=== PATIENT | female | born 2000 | race Caucasian/White ===

== ENCOUNTER 2024-09-25 20:01 | Emergency (ER) | payer BC, SELFPAY ==
[2024-09-25 20:09] VITALS: BP 143/96
[2024-09-25 20:28] LABS: % Basophils 0.8 % (0-2); % Eosinophils 1.4 % (0-6); % Immature Granulocytes 0.3 % (0-0.5); % Lymphocytes 37.4 % (20.5-51.1); % Monocytes 8.7 % (1.7-9.3); % Neutrophils 51.4 % (42.2-75.2); Absolute Basophils 0.1 10^3/uL (0-0.2); Absolute Eosinophils 0.1 10^3/uL (0-0.7); Absolute Monocytes 0.7 10^3/uL (0.1-0.6); Absolute Neutrophils 4.1 10^3/uL (1.4-6.5); Hematocrit 42.5 % (37.0-47.0); Hemoglobin 14.6 g/dL (12.0-16.0); Mean Corp Hgb Conc. 34.4 g/dL (33.0-37.0); Mean Corpuscular Hgb 31.3 pg (27.0-31.0); Nucleated Red Blood Cells % 0 %; Platelet Count 292 10^3/uL (130-400); Red Blood Cell Count 4.67 10^6/uL (4.20-5.40); Red Cell Dist. Width 11.2 % (11.5-14.5); White Blood Cell Count 7.9 10^3/uL (4.8-10.8)
[2024-09-25 20:29] LABS: Urine Albumin Negative (Neg - Trace); Urine Bilirubin Negative (Negative); Urine Character Clear (Clear); Urine Color Yellow; Urine Glucose Negative (Negative); Urine Ketone Negative (Negative); Urine Leukocyte 1+ (Negative); Urine Nitrite Negative (Negative); Urine Occult Blood 4+ (Negative); Urine Urobilinogen Negative (Neg - 1+); Urine pH 6.5 (5.0-9.0)
[2024-09-25 20:39] LABS: Urine Bacteria Few (Negative); Urine Red Blood Cell 0-2 /HPF (0-2); Urine Squamous Cell >30 /LPF (Few)
[2024-09-25 20:43] LABS: HCG, Serum Qualitative Screen Negative
[2024-09-25 20:48] LABS: ALT (SGPT) 19 U/L (0-35); AST (SGOT) 23 U/L (14-36); Albumin 5.2 g/dl (3.5-5.0); Alkaline Phosphatase 67 U/L (38-126); Blood Urea Nitrogen 18 mg/dl (7-17); Calcium 9.1 mg/dl (8.4-10.2); Carbon Dioxide 25 mmol/L (22-30); Chloride 103 mmol/L (98-107); Glucose 90 mg/dl (70-99); Lipase 87 U/L (23-300); Potassium 4.1 mmol/L (3.5-5.1); Sodium 141 mmol/L (135-145); Total Bilirubin 0.5 mg/dl (0.2-1.3); Total Protein 7.7 g/dl (6.3-8.2); eGFR > 60.00
[2024-09-25 20:51] VITALS: BP 150/98
[2024-09-25 20:53] VITALS: BMI 23.0
[2024-09-25 22:00] VITALS: BP 119/86
--- NOTE | 2024-09-25 22:10 | ED.GENMED ---
History of Present Illness
<Melvina Soto NP - Last Filed: 09/25/24 22:48>
General
Chief Complaint: Abdominal Pain
Source: patient
Exam Limitations: none
Time Seen by Provider: 09/25/24 21:03
Nursing documentation reviewed up to this point in time: agreed with
History of Present Illness
History of Present Illness:
Patient to ED wt complaint of left flank pain. Symptoms started 3 days ago. Denies fever/chills, n/v/d. No prior history of same. No aggravating or alleviating factors. States pain is constant.
Past History
<Melvina Soto NP - Last Filed: 09/25/24 22:48>
Past History
ED Past Medical History: None
ED Past Surgical History: None
Review of Systems
<Melvina Soto NP - Last Filed: 09/25/24 22:48>
Review of Systems
Allergies reviewed?: Yes
All Other Systems: ROS reviewed and negative except as documented in HPI and ROS
Constitutional: Reports no symptoms
EENT: Reports no symptoms
Respiratory: Reports no symptoms
Cardiac: Reports no symptoms
ABD/GI: Reports no symptoms
: Reports flank pain
Musculoskeletal: Reports no symptoms
Skin: Reports no symptoms
Neurological: Reports no symptoms
Psychiatric: Reports no symptoms
Phy Exam
<Melvina Soto NP - Last Filed: 09/25/24 22:48>
General Physical Exam
General Presentation: mild distress
General age: appears stated age
General Skin: warm and dry
General Habitus: normal
General Mental: alert
Gastrointestinal Exam
Gastrointestinal Exam: normal bowel sounds, non tender, soft, no organomegaly and non distended
Musculoskeletal Exam
Musculoskeletal Exam: full ROM and neuro vasc intact
Skin Exam
Skin Exam: normal color, warm/dry and no rash
Psychiatric Exam
Psychiatric Exam: normal mood/affect
Course
<Melvina Soto NP - Last Filed: 09/25/24 22:48>
Orders/Labs/Results
Orders:
Orders
09/25/24 20:14
Test Result ONCE
09/25/24 20:21
Complete Blood Count/With Diff Urgent
Comprehensive Metabolic Panel Urgent
HCG, Serum Qualitative Screen Urgent
Comment: Notify provider if positive test present
Lipase Urgent
Urinalysis Reflex To Culture Urgent
Date Specimen was Collected: 09/25/24
Time Specimen was Collected: 20:14
Urine Microscopic Reflex Cult Urgent
Urine Culture Urgent
JEREL Source: U
Specimen Description:
Date Specimen was Collected: 09/25/24
Time Specimen was Collected: 20:14
09/25/24 21:45
CT Abd/pel Without Iv Or Oral Urgent
Comment:
Reason For Exam: left flank pain
Abnormal Lab Results
09/25/24
20:21
MCH 31.3 H pg
(27.0-31.0)
RDW 11.2 L %
(11.5-14.5)
Absolute Monos (auto) 0.7 H 10^3/uL
(0.1-0.6)
BUN 18 H mg/dl
(7-17)
Creatinine 1.2 H mg/dL
(0.6-1.0)
Albumin 5.2 H g/dl
(3.5-5.0)
Ur Occult Blood Reflex 4+ A
(Negative)
Leukocyte Esterase Rfl 1+ A
(Negative)
Urine Bacteria (Reflex) Few A
(Negative)
09/25/24 20:21
09/25/24 20:21
Vital Signs
Initial and Last Documented VS:
Initial Vital Signs
Temp Pulse Resp BP Pulse Ox
97.7 F 62 16 143/96 97
09/25/24 20:09 09/25/24 20:09 09/25/24 20:09 09/25/24 20:09 09/25/24 20:09
Last Documented Vital Signs
Temp Pulse Resp BP Pulse Ox
97.7 F 62 16 119/86 96
09/25/24 20:09 09/25/24 20:09 09/25/24 23:31 09/25/24 22:00 09/25/24 22:30
<CHRISTIE Smith - Last Filed: 09/26/24 00:26>
Orders/Labs/Results
Orders:
Orders
09/25/24 20:14
Test Result ONCE
09/25/24 20:21
Complete Blood Count/With Diff Urgent
Comprehensive Metabolic Panel Urgent
HCG, Serum Qualitative Screen Urgent
Comment: Notify provider if positive test present
Lipase Urgent
Urinalysis Reflex To Culture Urgent
Date Specimen was Collected: 09/25/24
Time Specimen was Collected: 20:14
Urine Microscopic Reflex Cult Urgent
Urine Culture Urgent
JEREL Source: U
Specimen Description:
Date Specimen was Collected: 09/25/24
Time Specimen was Collected: 20:14
09/25/24 21:45
CT Abd/pel Without Iv Or Oral Urgent
Comment:
Reason For Exam: left flank pain
Abnormal Lab Results
09/25/24
20:21
MCH 31.3 H pg
(27.0-31.0)
RDW 11.2 L %
(11.5-14.5)
Absolute Monos (auto) 0.7 H 10^3/uL
(0.1-0.6)
BUN 18 H mg/dl
(7-17)
Creatinine 1.2 H mg/dL
(0.6-1.0)
Albumin 5.2 H g/dl
(3.5-5.0)
Ur Occult Blood Reflex 4+ A
(Negative)
Leukocyte Esterase Rfl 1+ A
(Negative)
Urine Bacteria (Reflex) Few A
(Negative)
09/25/24 20:21
09/25/24 20:21
Vital Signs
Initial and Last Documented VS:
Initial Vital Signs
Temp Pulse Resp BP Pulse Ox
97.7 F 62 16 143/96 97
09/25/24 20:09 09/25/24 20:09 09/25/24 20:09 09/25/24 20:09 09/25/24 20:09
Last Documented Vital Signs
Temp Pulse Resp BP Pulse Ox
97.7 F 62 16 119/86 96
09/25/24 20:09 09/25/24 20:09 09/25/24 23:31 09/25/24 22:00 09/25/24 22:30
<CHRISTIE Smith - Last Filed: 09/26/24 00:26>
MDM/Problems Addressed
MDM/Problems Addressed:
0005:Assumed care of pt . CT shows severe left sided hydro. there is no definite obs renal calculus. Findings are concerning for possible UPJ obstruction secondary to an adjacent crossing vessel. Patient with no obvious UTI. Creatinine is 1.2.
pt in no distress.
Case reviewed with urology, Dr. Lawrence, as d/c,likely congenital findings. patient is well-appearing and stable for discharge home patient will need additional outpatient imaging and close follow-up by urology. d/c findings with patient and the
importance of close outpatient with urology. Patient feels well to go home discussed to return if any worsening of symptoms including increasing pain nausea vomiting fever chills.
<CHRISTIE Smith - Last Filed: 09/26/24 00:26>
*Radiology
Radiology exam reviewed: radiology read reviewed
*Pulse Oximetry
Patient hypoxic: no
<CHRISTIE Smith - Last Filed: 09/26/24 00:26>
Patient Management
Discussion with other providers: Director Of [employer] (DR Lawrence )
<Melvina Soto NP - Last Filed: 09/25/24 22:48>
Update Note
Update Note:
Patient to ED with complaint of left flank pain. Symptoms started 3 days ago. No fever/chills. UA reviewed. Heme pos (LMP ended this past weekend). Will send for CT tor/o stone.
ED Attending Note
<Melvina Soto NP - Last Filed: 09/25/24 22:48>
-
Portions of this chart may have been created with voice recognition software.� Occasional wrong word or��sound alike� substitutions may have occurred due to the inherent limitations of voice recognition software.
Discharge Plan
Departure
Patient Disposition: Home (Routine Discharge)
Date of Disposition: 09/26/24
Time of Disposition: 00:23
Patient with high blood pressure during this ER visit?: Yes
Condition: Fair
Covid-19: Not Applicable
Discharge Problem:
Acute flank pain, Hydronephrosis
Instructions: Flank pain - ED discharge instructions
Prescriptions:
No Action
No Current Medications
0
Referrals:
Kedar Lawrence MD [Active] -
NONE,* [Family Provider] -
Activity Restrictions/Additional Instructions:
As discussed you will need close outpatient follow-up with urology and continued additional imaging for evaluation of left-sided hydronephrosis. Please call tomorrow to schedule an appointment soon as possible. Return if any worsening of symptoms
of increased flank pain nausea vomiting fever chills.
Interventions
Interventions:
*Risk Screen - Suicide Last Done: 09/25/24 20:09
*General Assessment Last Done: 09/25/24 20:53
*Neglect/Abuse Screening Last Done: 09/25/24 20:09
*ED- Fall Risk Assessment Last Done: 09/25/24 20:53
*ED COVID-19 Vaccine History Last Done: 09/25/24 20:53
YT-Xqbotd-Qvcqtdwcac Assessment Last Done: 09/25/24 20:56
Discharge Date and Time
Print Language: BULGARIAN
[2024-09-26 00:34] VITALS: BP 116/84
== END 2024-09-26 00:35 | disposition home or self-care (01) ==
LOC: EMR 20:01
PROVIDERS: EMERGENCY PHYSICIAN Student in an Organized Health Care Education/Training Program
DX: N13.30 Unspecified hydronephrosis (principal); R10.9 Unspecified abdominal pain
CPT/HCPCS: 99284; 74176; 80053; 81003; 81015; 83690; 84703; 85025; 87086

== ENCOUNTER → 2024-10-18 10:31 | Outpatient (REF) | payer BC, SELFPAY | LOC: RAD 10:31 | PROVIDERS: ATTENDING PHYSICIAN Urology | DX: N13.5 Crossing vessel and stricture of ureter without hydronephrosis (principal) | CPT/HCPCS: 78708; A9539 ==

== ENCOUNTER 2024-10-25 06:30 | Day surgery (SDC) | payer BC, SELFPAY ==
[2024-10-25] VITALS (7 sets, daily range): BP systolic 123–135; BP diastolic 74–89; BMI 22.5
== END 2024-10-25 14:55 | disposition home or self-care (01) ==
LOC: SDS 06:30
PROVIDERS: ATTENDING PHYSICIAN Urology
DX: N13.5 Crossing vessel and stricture of ureter without hydronephrosis (principal)
CPT/HCPCS: 52005; 74420; 76000; 82365; A4300; C1769

== ENCOUNTER 2024-11-22 05:52 | Day surgery (SDC) | payer BC, SELFPAY ==
[2024-11-12 13:20] VITALS: BMI 20.2
[2024-11-22] VITALS (13 sets, daily range): BP systolic 117–139; BP diastolic 70–91; BMI 20.2
[2024-11-22] MEDS: NORMOSOL-R/PLASMALYTE-A 1000 IV (06:20)
[2024-11-22] MEDS: TORADOL 15 MG IV ×2 (13:13→19:35)
[2024-11-22] MEDS: LR 1000 IV (13:15)
--- NOTE | 2024-11-22 15:45 | PTCARENOTE ---
Patient admitted at 12:00 to remove 2114 from PACU. VSS. AOx3, denies pain. x5 lap sites noted, glue intact. Discussed plan, patient verbalizes understanding.
--- NOTE | 2024-11-22 15:51 | PTCARENOTE ---
Patient admitted at 12:00 to room 2115 from PACU. VSS. AOx3, denies pain. x5 lap sites noted, glue intact. Discussed plan, patient verbalizes understanding.
[2024-11-23 00:34] VITALS: BP 135/77
[2024-11-23] MEDS: TORADOL 15 MG IV ×2 (02:00→09:09)
[2024-11-23 03:31] VITALS: BP 119/75
[2024-11-23 07:59] VITALS: BP 123/83
[2024-11-23 08:11] LABS: Hematocrit 37.1 % (37.0-47.0); Mean Corpuscular Hgb 31.5 pg (27.0-31.0); Mean Corpuscular Volume 89.8 fL (81.0-99.0); Mean Platelet Volume 10.8 fL (7.4-10.4); Platelet Count 226 10^3/uL (130-400); Red Blood Cell Count 4.13 10^6/uL (4.20-5.40); Red Cell Dist. Width 11.4 % (11.5-14.5); White Blood Cell Count 11.2 10^3/uL (4.8-10.8)
--- NOTE | 2024-11-23 08:42 | W.PN.URO.CBU ---
Today's Communication / Plan
-
Discharge
Assessment / Plan
-
24F POD 1 s/p L pyeloplasty
- Reg diet
- Ambulating
- Pain controlled on toradol only
- Discharge today
Diagnosis
-
Date of Service: November 23, 2024
-
Patient Diagnosis:
L UPJ obstruction
Post Op #1 s/p L pyeloplasty
Subjective
-
pain controlled
tolerating diet
ambulated
Objective
-
Vital Signs
Temp Pulse Resp BP Pulse Ox
98.6 F 57 18 123/83 98
11/23/24 07:59 11/23/24 07:59 11/23/24 07:59 11/23/24 07:59 11/23/24 07:59
Intake and Output
11/22/24 11/23/24 11/24/24
06:59 06:59 06:59
Intake Total 880 / 880
Output Total 5 / 1675 100 / 100
Balance -795 / -795 -100 / -100
Intake:
Oral fluids 480 / 480
IV fluids (Total) 400 / 400
Normosol 400 / 400
Output:
Urine, Pedersen 1675 / 1675
Urine, Voided 100 / 100
Laboratory Results
11/23/24 07:18
Physical Exam
-
General - well developed, well nourished, no acute distress
Chest - clear bilaterally
Abdomen - soft, non-tender, no CVAT, no incisional pain or distention
[2024-11-23 08:57] LABS: Blood Urea Nitrogen 13 mg/dl (7-17); Calcium 8.9 mg/dl (8.4-10.2); Carbon Dioxide 22 mmol/L (22-30); Chloride 109 mmol/L (98-107); Estimated Creatinine Clearance 84 ml/min; Glucose 86 mg/dl (70-99); Potassium 4.2 mmol/L (3.5-5.1); Sodium 137 mmol/L (135-145); eGFR > 60.00
--- NOTE | 2024-11-23 10:45 | CM ---
Patient discharged and left the floor prior to CM. Patient with no needs per nursing/chart review.
== END 2024-11-23 10:07 | disposition home or self-care (01) ==
LOC: SDS 05:52
PROVIDERS: ATTENDING PHYSICIAN Urology
DX: N13.1 Hydronephrosis with ureteral stricture, not elsewhere classified (principal)
CPT/HCPCS: 50544; 80048; 85027; 86850; 86900; 86901; C2617

== ENCOUNTER → 2025-02-06 07:25 | Outpatient (REF) | payer BC, SELFPAY | LOC: HWRAD 07:25 | PROVIDERS: ATTENDING PHYSICIAN Urology | DX: N13.5 Crossing vessel and stricture of ureter without hydronephrosis (principal) | CPT/HCPCS: 76775 ==